=== PATIENT | male | born 1950 | race Asian ===

== ENCOUNTER 2020-08-20 22:12 | Emergency (ER) | payer OTHER ==
[~2020-08-20] VITALS: Ht 172.7 cm; Wt 108.2 kg
[2020-08-20 23:24] LABS: BASOPHILS % (AUTO) 1 % (0-1); EOSINOPHILS % (AUTO) 3 % (1-7); LYMPHOCYTES % (AUTO) 30 % (22-44); MEAN CORPUSCULAR HEMOGLOBIN 30.8 pg (27.5-34.5); MEAN CORPUSCULAR HGB CONC 34.4 g/dL (33.2-36.2); MEAN PLATELET VOLUME 7.8 fL (7.4-10.4); MONOCYTES % (AUTO) 9 % (2-9); NEUTROPHILS % (AUTO) 57 % (42-75); PLATELET COUNT 298 x10^3/uL (130-400); RED BLOOD COUNT 4.34 x10^6/uL (4.38-5.82); RED CELL DISTRIBUTION WIDTH 13.5 % (9.4-14.8)
[2020-08-20 23:33] LABS: ALBUMIN 3.9 g/dL (3.4-5.0); ANION GAP 6 mmol/L (5-15); CALCIUM 9.1 mg/dL (8.5-10.1); CHLORIDE 104 mmol/L (98-107)
[2020-08-20 23:38] LABS: ALANINE AMINOTRANSFERASE 33 U/L (12-78); ALKALINE PHOSPHATASE 88 U/L (45-117); BILIRUBIN,TOTAL 0.5 mg/dL (0.2-1.0); CREATININE 1.44 mg/dL (0.7-1.3); TOTAL PROTEIN 8.4 g/dL (6.4-8.2); TROPONIN I 0.051 ng/mL (0.000-0.045)
--- NOTE | 2020-08-21 01:47 | NUR ---
PT. TO ROOM FROM [facility]: PT. C/O FALL OFF CHAIR WHILE GAMBLING AT THE [facility] [employer] AROUND 1999. PT. C/O LEFT HIP PAIN. PT. REPORTS DIZZINESS AFTER FALL. DENIES LOC BUT STATES HE DOESN'T KNOW IF HE HIT HIS HEAD. PT. VERBALLY AGRESSIVE TOWARDS THIS RN ABOUT [facility] WAIT TIME. RE-ASSURANCE OFFERED TO PT. PT. PLACED ON SPO2, B/P, AND CARDIAC MONITORS. EKG WAS DONE IN TRIAGE. AT FOR SUPPORT. Addendum: 08/21/20 at 0152 by JAYME PT. STATES THE PAIN IS IN HIS LEFT LOWER BACK; BUT IS HOLDING HIS HIP.
--- NOTE | 2020-08-21 02:14 | NUR ---
PT. STATED THAT HIS BLOOD SUGAR FELT LOW R/T BEING DIABETIC AND TAKING INSULIN WITHOUT EATING VERY MUCH. FSBS 62; PT. PROVIDED WITH APPLE JUICE.
--- NOTE | 2020-08-21 02:22 | NUR ---
REPORT RECIEVED FROM FREDDY CHEN. PT PROVIDED PILLOWS AND BLANKETS PER REQUEST. PT UP FOR RCK AT THIS TIME
[2020-08-21] MEDS ORDERED: ASPIRIN 81 MG TABLET CHEW ONE (02:41)
[2020-08-21] MEDS ORDERED: ASPIRIN 81 MG TABLET CHEW PO ONE (03:00)
[2020-08-21 03:09] LABS: TROPONIN I 0.047 ng/mL (0.000-0.045)
[2020-08-21 04:33] VITALS: BP 145/61
== END 2020-08-21 06:01 | disposition home or self-care (01) ==
LOC: ED 08-21 05:00
DX: S39.012A Strain of muscle, fascia and tendon of lower back, initial encounter (principal); S09.90XA Unspecified injury of head, initial encounter; R07.9 Chest pain, unspecified; M54.2 Cervicalgia; R77.8 Other specified abnormalities of plasma proteins; R94.31 Abnormal electrocardiogram [ECG] [EKG]; I10 Essential (primary) hypertension; E11.9 Type 2 diabetes mellitus without complications; I25.10 Atherosclerotic heart disease of native coronary artery without angina pectoris; W07.XXXA Fall from chair, initial encounter; Y93.89 Activity, other specified; Y92.59 Other trade areas as the place of occurrence of the external cause; Y99.8 Other external cause status
CPT/HCPCS: 36415; 70450; 71045; 80053; 82962; 84484; 85025; 85379; 93005; 99285